=== PATIENT | male | born 1970 | race Hispanic/Latino ===

== ENCOUNTER 2022-06-01 22:36 | Emergency (ER) | payer SELFPAY ==
[2022-06-01] MEDS ORDERED: Ondansetron ODT 4 MG TAB ONE (23:45)
== END 2022-06-02 00:13 | disposition home or self-care (01) ==
LOC: CSHERS 22:36
DX: B34.9 Viral infection, unspecified (principal); J02.9 Acute pharyngitis, unspecified; I10 Essential (primary) hypertension; F17.210 Nicotine dependence, cigarettes, uncomplicated; Z20.822 Contact with and (suspected) exposure to COVID-19
CPT/HCPCS: 87081; 87430; 99283; Q0162; U0003; U0005